=== PATIENT | female | born 1945 | race Caucasian/White ===

== ENCOUNTER 2023-04-19 10:45 | Emergency (ER) | payer MEDICARE, SELFPAY ==
[2023-04-19 10:53] VITALS: BP 156/75; PULSE 88; RESP 18; TEMP 37; O2SAT 99; BMI 30.1
[2023-04-19 11:43] LABS: Basophils Percent Auto 0.3 % (0.2-2.0); Eosinophils Absolute Auto 0.1 10^3/uL (0.0-0.7); Eosinophils Percent Auto 0.5 % (0.9-7.0); Hematocrit 31.1 % (36.0-48.0); Hemoglobin 10.7 g/dL (12.0-16.0); Immature Granulocytes Abs Auto 0.05 10^3/uL (0.00-0.03); Immature Granulocytes Pct Auto 0.5 % (0.0-0.5); Lymphocytes Absolute Auto 0.7 10^3/uL (1.2-3.8); Lymphocytes Percent Auto 6.7 % (20.5-60.0); Mean Corpuscular HGB Conc 34.4 g/dL (29.9-35.2); Mean Corpuscular Hemoglobin 31.2 pg (26.7-34.0); Mean Corpuscular Volume 90.7 fL (81.0-99.0); Monocytes Absolute Auto 0.9 10^3/uL (0.3-0.8); Monocytes Percent Auto 8.2 % (1.7-12.0); Neutrophils Absolute Auto 9.3 10^3/uL (1.4-6.5); Neutrophils Percent Auto 83.8 % (43.0-75.0); Platelet Count 205 10^3/uL (150-450); Red Blood Count 3.43 10^6/uL (4.20-5.40); Red Cell Distribution Width 13.4 % (11.0-15.0)
[2023-04-19] MEDS: 0.9 % SODIUM CHLORIDE 1,000 ML 100 ML IV (11:45)
[2023-04-19] MEDS: ONDANSETRON PF 4 MG/2 ML VIAL IV (11:46)
--- NOTE | 2023-04-19 11:53 | US_ITS ---
The [address] [address] Patient Name: WILL THOMAS MRN: [id number] date: 1945 Sex: F Assigned Patient Location: ER Current Patient Location: ER Accession/Order Number: [id number] Exam Date: 04/19/2023 12:30 Report Date: 04/19/2023 13:07 At the request of: COURTNEY LINARES Procedure: US right upper quadrant EXAM: US right upper quadrant HISTORY: RUQ gallbladder COMPARISON: None. TECHNIQUE: Limited ultrasound of the liver, utilizing grayscale and color Doppler imaging. FINDINGS: Right pleural space: Clear Liver: Mild increased echogenicity of the liver with coarse echotexture, representing hepatic steatosis. Normal size and contour. There is a 3.5 cm anechoic structure in the right hepatic lobe without vascular flow. There are echogenic areas in left hepatic lobe, 0.9 and 2.1 cm, may represent hemangioma. Nonurgent Multiphasic CT of the abdomen (liver protocol) is recommended for better evaluation. Gallbladder: No gallbladder wall thickening or cholelithiasis.Negative sonographic Romano's sign. Intrahepatic ducts: Normal caliber. Extra hepatic duct measures up to 0.7 cm Peritoneal space: No ascites. Pancreas: Unremarkable Right kidney: Normal cortical echogenicity. No hydronephrosis. The right kidney measures 11 cm in length. US/US right upper quadrant IMPRESSION: Hepatic steatosis. 3.5 cm right hepatic cyst. 0.9 and 2.1 cm echogenic lesions in left hepatic lobe, may represent hemangioma. Nonurgent Multiphasic CT of the abdomen (liver protocol) is recommended for better evaluation. No cholelithiasis. Electronically authenticated by: EARLINE LYNN Date: 04/19/2023 13:07
--- NOTE | 2023-04-19 11:54 | ED.GENADUL1 ---
HPI - General Adult General Chief complaint: Abdominal Pain Stated complaint: ABDOMINAL PAIN Time Seen by Provider: 04/19/23 11:35 Source: patient Mode of arrival: walk-in History of Present Illness HPI narrative: Patient is a 77-year-old female who is presenting to the Emergency Room today with chief complaint of right upper quadrant pain this started yesterday at 2 PM. Patient stated that she was eating a [employer] candy bar at approximately 2 PM, and from 2 to 4 PM she was having severe right upper quadrant pain that radiated to the right lateral chest wall. Patient stated the pain was ongoing throughout the evening last night, she did not sleep much secondary to pain. Patient then was having some pain this morning but then it resolved. Patient came into the Emergency Room today because she cannot follow up with a PCP. Patient did see Dr. Resendez in the past, he retired. Dr. Jones cannot see patient in until May. They're to switch PCP to Dr. Dumont. Patient has nausea no vomiting. She has no pain currently. No chest pain or shortness of breath. Currently no dull pain, positive nausea, no vomiting, no diarrhea. No constipation concerns. . All systems are negative except as noted/marked. All systems reviewed and otherwise negative. . Nurses note and vital signs reviewed and patient is not hypoxic. General: The patient appears well and in no apparent distress. Patient is resting comfortably on cart. Patient is not toxic, lethargic, or listless Skin: Warm, dry, no pallor noted. There is no rash noted. No petechiae, purpura. Head: Normocephalic, atraumatic Eye: Normal conjunctiva, no drainage, EOMI. PERRL Ears, Nose, Mouth, and Throat: oral mucosa is moist. Nares patent. Mouth without vesicles. Cardiovascular: Regular Rate and Rhythm, no murmur, gallop, rub Respiratory: Patient is in no distress, no accessory muscle use, lungs are clear to auscultation, no wheezing, rales or rhonchi Back: non-tender, no CVA tenderness bilaterally to percussion. No CT LS midline pain GI: soft, Patient has no tenderness to palpation right upper quadrant, negative Romano sign, no midepigastric tenderness palpation, no peritoneal signs, soft, benign abdomen, no tenderness to palpation, no masses appreciated. No rebound, guarding, or rigidity noted. No flank pain bilateral, No distention Musculoskeletal: Patient has full range of motion of all of the extremities, no motor, sensory, or focal neurological deficits Neurological: A&O x3, normal speech Psychiatric: Cooperative Related Data Home Medications Medication Instructions Recorded Confirmed anastrozole 1 mg tablet 1 mg PO DAILY 04/19/23 04/19/23 apixaban 5 mg tablet (Eliquis) 5 mg PO BID 04/19/23 04/19/23 atorvastatin 40 mg tablet 40 mg PO DAILY 04/19/23 04/19/23 carvedilol 6.25 mg tablet 6.25 mg PO BID 04/19/23 04/19/23 chlorthalidone 25 mg tablet 25 mg PO DAILY 04/19/23 04/19/23 latanoprost 0.005 % eye drops 1 drp ophthalmic (eye) DAILY 04/19/23 04/19/23 valsartan 320 mg tablet 320 mg PO DAILY 04/19/23 04/19/23 Allergies Allergy/AdvReac Type Severity Reaction Status Date / Time ciprofloxacin [From Cipro] Allergy Severe Verified 04/19/23 10:56 sulfamethoxazole Allergy Severe Verified 04/19/23 10:52 [From Bactrim] trimethoprim [From Bactrim] Allergy Severe Verified 04/19/23 10:52 [facility] Medical History (Updated 04/19/23 @ 14:14 by Lyle Fuchs MD) Surgical History (Updated 04/19/23 @ 11:01 by Melania Parker) Exam Constitutional Vital Signs, click to edit/add: Last Vital Signs Temp 98.6 F 04/19/23 10:53 Pulse 66 04/19/23 13:30 Resp 11 L 04/19/23 13:30 BP 156/75 H 04/19/23 10:53 Pulse Ox 99 04/19/23 10:53 O2 Del Method Room Air 04/19/23 10:53 Course Vital Signs Vital signs: Vital Signs Temperature 98.6 F 04/19/23 10:53 Pulse Rate 88 04/19/23 10:53 Respiratory Rate 18 04/19/23 10:53 Blood Pressure 156/75 H 04/19/23 10:53 Pulse Oximetry 99 04/19/23 10:53 Oxygen Delivery Method Room Air 04/19/23 10:53 Temperature 98.6 F 04/19/23 10:53 Pulse Rate 66 04/19/23 13:30 Respiratory Rate 11 L 04/19/23 13:30 Blood Pressure 156/75 H 04/19/23 10:53 Pulse Oximetry 99 04/19/23 10:53 Oxygen Delivery Method Room Air 04/19/23 10:53 Medical Decision Making MDM Narrative Medical decision making narrative: Patient's laboratory shows no significant findings. Lipase notation no significant changes. Patient's ultrasound the right upper quadrant showed no acute findings. A copy of the ultrasound report was given to the patient and with patient, and daughter bedside, all the impressions of the ultrasound report of the gallbladder were discussed in detail. Patient will establish and follow up with new PCP. Patient was given prescription for Zofran and Bentyl to use if needed. No acute findings today. Patient is asymptomatic entire time in the Emergency Room. Difficult to assess whether this could've been gas underneath the right upper quadrant diaphragm could've caused similar pain, patient feels better, will follow-up establish new PCP. Lab Data Lab results reviewed: Yes I reviewed the patient's lab results Labs: Lab Results 04/19/23 Range/Units 11:30 WBC 11.0 (4.0-11.0) 10^3/uL RBC 3.43 L (4.20-5.40) 10^6/uL Hgb 10.7 L (12.0-16.0) g/dL Hct 31.1 L (36.0-48.0) % MCV 90.7 (81.0-99.0) fL MCH 31.2 (26.7-34.0) pg MCHC 34.4 (29.9-35.2) g/dL RDW 13.4 (11.0-15.0) % Plt Count 205 (150-450) 10^3/uL MPV 10.0 (9.5-13.5) fL Neut % (Auto) 83.8 H (43.0-75.0) % Lymph % (Auto) 6.7 L (20.5-60.0) % [place] % (Auto) 8.2 (1.7-12.0) % Eos % (Auto) 0.5 L (0.9-7.0) % Baso % (Auto) 0.3 (0.2-2.0) % Neut # (Auto) 9.3 H (1.4-6.5) 10^3/uL Lymph # (Auto) 0.7 L (1.2-3.8) 10^3/uL [place] # (Auto) 0.9 H (0.3-0.8) 10^3/uL Eos # (Auto) 0.1 (0.0-0.7) 10^3/uL Baso # (Auto) 0.0 (0.0-0.1) 10^3/uL Abs Immat Gran (auto) 0.05 H (0.00-0.03) 10^3/uL Imm/Tot Granulo (auto) 0.5 (0.0-0.5) % Sodium 139 (136-145) mmol/L Potassium 3.6 (3.5-5.1) mmol/L Chloride 101 (98-107) mmol/L Carbon Dioxide 28.5 (21.0-32.0) mmol/L Anion Gap 13.1 BUN 21.0 H (7.0-18.0) mg/dL Creatinine 1.19 H (0.55-1.02) mg/dL Est GFR ( Amer) 53 L (>=60) Est GFR (Non-Af Amer) 44 L (>=60) BUN/Creatinine Ratio 17.6 Glucose 138 H (74-106) mg/dL Calcium 9.1 (8.5-10.1) mg/dL Total Bilirubin 0.6 (0.2-1.0) mg/dL Direct Bilirubin 0.1 (0.0-0.2) mg/dL AST 16 (15-37) U/L ALT 28 (14-59) U/L Alkaline Phosphatase 54 (46-116) U/L Troponin I High Sens 9.9 (4.0-51.3) pg/mL Total Protein 7.1 (6.4-8.2) g/dL Albumin 3.5 (3.4-5.0) g/dL Globulin 3.6 g/dL Albumin/Globulin Ratio 1.0 Lipase 243.0 (73.0-393.0) U/L ECG Data Attestation: I personally reviewed and interpreted this ECG as follows: Interpretation: EKG interpretation. Normal sinus rhythm 82 beats a minute. Normal axis deviation. No acute ST elevation, no acute ectopy. QTC of 409 Discharge Plan Discharge Chief Complaint: Abdominal Pain Clinical Impression: Biliary colic, Abdominal pain, acute, right upper quadrant Patient Disposition: Home, Self-Care Condition: Good Prescriptions / Home Meds: No Action anastrozole 1 mg tablet 1 mg PO DAILY Eliquis 5 mg tablet 5 mg PO BID atorvastatin 40 mg tablet 40 mg PO DAILY carvedilol 6.25 mg tablet 6.25 mg PO BID chlorthalidone 25 mg tablet 25 mg PO DAILY latanoprost 0.005 % drops 1 drp OPHTHALMIC (EYE) DAILY valsartan 320 mg tablet 320 mg PO DAILY Instructions: Biliary Colic (ED), Acute Abdominal Pain (ED) Additional Instructions: Increase fluids. If pain continues, follow up with PCP for additional testing. You were given a copy of her ultrasound report Stand Alone Forms: Portal Instructions Referrals: Physician,Non-Staff, MD [Primary Care Provider] - 1 week Discharge Date/Time: 04/19/23 14:35
[2023-04-19 11:56] LABS: Alanine Aminotransferase 28 U/L (14-59); Albumin Level 3.5 g/dL (3.4-5.0); Alkaline Phosphatase 54 U/L (46-116); Anion Gap 13.1; Aspartate Amino Transferase 16 U/L (15-37); BUN Creatinine Ratio 17.6; Bilirubin Direct 0.1 mg/dL (0.0-0.2); Bilirubin Total 0.6 mg/dL (0.2-1.0); Calcium 9.1 mg/dL (8.5-10.1); Carbon Dioxide 28.5 mmol/L (21.0-32.0); Chloride 101 mmol/L (98-107); Estimated GFR (African America 53 (>=60); Estimated GFR (Non-African Ame 44 (>=60); Globulin 3.6 g/dL; Glucose 138 mg/dL (74-106); Potassium 3.6 mmol/L (3.5-5.1); Sodium 139 mmol/L (136-145); Total Protein 7.1 g/dL (6.4-8.2); Troponin I High Sensitivity 9.9 pg/mL (4.0-51.3)
[2023-04-19 13:00] VITALS: PULSE 66; RESP 20
[2023-04-19 13:10] VITALS: PULSE 68; RESP 24
[2023-04-19 13:20] VITALS: PULSE 66; RESP 13
[2023-04-19 13:30] VITALS: PULSE 66; RESP 11
--- NOTE | 2023-04-19 19:53 | ECG_ITS ---
[facility] Test Date: 2023-04-19 Pat Name: WILL THOMAS Department: Room: - Gender: Female Emb[employer]ded [employer] Developer: : 1945 Requested By: [id number] Order Number: [id number] Reading MD: ZACK NARAYANAN Measurements Intervals [place] Rate: 82 P: 90 AK: 154 QRS: 96 QRSD: 92 T: 83 QT: 370 QTc: 409 Interpretive Statements 1100 Sinus rhythm 1102 Sinus arrhythmia 2420 RSR (QR) in lead V1/V2, consistent with right ventricular conduction delay 7102 Moderate right axis deviation 9130 borderline ECG No previous ECG available for comparison Electronically Signed On 04-20-2023 7:07:27 EDT by ZACK NARAYANAN
== END 2023-04-19 14:35 | disposition home or self-care (01) ==
PROVIDERS: Emergency Provider Emergency Medicine
DX: R10.11 Right upper quadrant pain (principal); K80.50 Calculus of bile duct without cholangitis or cholecystitis without obstruction; Z79.899 Other long term (current) drug therapy
CPT/HCPCS: 36415; 76705; 80053; 80076; 83690; 84484; 85025; 93005; 96374; 99285

== ENCOUNTER 2023-04-21 09:16 | Outpatient (OUT) | payer MEDICARE, SELFPAY ==
[2023-04-21 10:14] LABS: Alanine Aminotransferase 25 U/L (14-59); Albumin Globulin Ratio 0.8; Albumin Level 3.2 g/dL (3.4-5.0); Alkaline Phosphatase 50 U/L (46-116); Anion Gap 10.3; Aspartate Amino Transferase 15 U/L (15-37); BUN Creatinine Ratio 20.8; Bilirubin Total 0.5 mg/dL (0.2-1.0); Calcium 8.5 mg/dL (8.5-10.1); Carbon Dioxide 29.1 mmol/L (21.0-32.0); Chloride 103 mmol/L (98-107); Chol HDL Ratio 2.5; Cholesterol 156 mg/dL (<=200); Estimated GFR (African America 43 (>=60); Estimated GFR (Non-African Ame 35 (>=60); Globulin 3.9 g/dL; Glucose 110 mg/dL (74-106); HDL Cholesterol 63 mg/dL (40-60); Potassium 3.4 mmol/L (3.5-5.1); Sodium 139 mmol/L (136-145); Total Protein 7.1 g/dL (6.4-8.2); Triglycerides 176 mg/dL (<=150); VLDL CHOLESTEROL 35.2 mg/dL
== END 2023-04-21 09:17 | disposition home or self-care (01) ==
LOC: LAB 09:16
DX: E78.5 Hyperlipidemia, unspecified (principal); I48.91 Unspecified atrial fibrillation; I10 Essential (primary) hypertension; E78.1 Pure hyperglyceridemia
CPT/HCPCS: 36415; 80053; 80061

== ENCOUNTER 2023-05-09 10:40 | Outpatient (OUT) | payer MEDICARE, SELFPAY ==
[2023-05-09 12:01] LABS: Anion Gap 12.1; BUN Creatinine Ratio 28.5; Calcium 8.7 mg/dL (8.5-10.1); Carbon Dioxide 28.2 mmol/L (21.0-32.0); Chloride 105 mmol/L (98-107); Estimated GFR (African America 40 (>=60); Estimated GFR (Non-African Ame 33 (>=60); Glucose 111 mg/dL (74-106); Potassium 4.3 mmol/L (3.5-5.1); Sodium 141 mmol/L (136-145)
== END 2023-05-09 10:41 | disposition home or self-care (01) ==
LOC: LAB 10:41
DX: E78.5 Hyperlipidemia, unspecified (principal); I48.91 Unspecified atrial fibrillation; E78.1 Pure hyperglyceridemia; I12.9 Hypertensive chronic kidney disease with stage 1 through stage 4 chronic kidney disease, or unspecified chronic kidney disease; Z90.13 Acquired absence of bilateral breasts and nipples; D64.9 Anemia, unspecified; I34.0 Nonrheumatic mitral (valve) insufficiency; I27.20 Pulmonary hypertension, unspecified
CPT/HCPCS: 36415; 80048

== ENCOUNTER 2023-05-18 11:24 | Outpatient (OUT) | payer MEDICARE, SELFPAY ==
[2023-05-18 12:39] LABS: Basophils Percent Auto 0.6 % (0.2-2.0); Eosinophils Absolute Auto 0.2 10^3/uL (0.0-0.7); Eosinophils Percent Auto 3.4 % (0.9-7.0); Hematocrit 32.1 % (36.0-48.0); Hemoglobin 10.6 g/dL (12.0-16.0); Immature Granulocytes Abs Auto 0.03 10^3/uL (0.00-0.03); Immature Granulocytes Pct Auto 0.4 % (0.0-0.5); Lymphocytes Absolute Auto 1.3 10^3/uL (1.2-3.8); Lymphocytes Percent Auto 18.1 % (20.5-60.0); Mean Corpuscular Hemoglobin 31.4 pg (26.7-34.0); Mean Platelet Volume 10.7 fL (9.5-13.5); Monocytes Absolute Auto 0.4 10^3/uL (0.3-0.8); Monocytes Percent Auto 5.3 % (1.7-12.0); Neutrophils Absolute Auto 5.1 10^3/uL (1.4-6.5); Neutrophils Percent Auto 72.2 % (43.0-75.0); Platelet Count 226 10^3/uL (150-450); Red Blood Count 3.38 10^6/uL (4.20-5.40); Red Cell Distribution Width 13.2 % (11.0-15.0)
[2023-05-18 12:54] LABS: Anion Gap 13.3; BUN Creatinine Ratio 24.5; Calcium 8.9 mg/dL (8.5-10.1); Chloride 107 mmol/L (98-107); Estimated GFR (African America 45 (>=60); Estimated GFR (Non-African Ame 37 (>=60); Glucose 126 mg/dL (74-106); Potassium 4.3 mmol/L (3.5-5.1); Sodium 140 mmol/L (136-145)
== END 2023-05-18 11:25 | disposition home or self-care (01) ==
LOC: LAB 11:25
PROVIDERS: PCP Family Medicine
DX: I12.9 Hypertensive chronic kidney disease with stage 1 through stage 4 chronic kidney disease, or unspecified chronic kidney disease (principal); D64.9 Anemia, unspecified
CPT/HCPCS: 36415; 80048; 85025

== ENCOUNTER 2024-03-06 08:43 | Outpatient (OUT) | payer MEDICARE, SELFPAY ==
[2024-03-06 09:22] LABS: Anion Gap 13.3; BUN Creatinine Ratio 29.2; Calcium 8.8 mg/dL (8.5-10.1); Carbon Dioxide 26.1 mmol/L (21.0-32.0); Chloride 107 mmol/L (98-107); Estimated GFR (African America 33 (>=60); Estimated GFR (Non-African Ame 28 (>=60); Glucose 118 mg/dL (74-106); Potassium 4.4 mmol/L (3.5-5.1); Sodium 142 mmol/L (136-145)
== END 2024-03-06 08:44 | disposition home or self-care (01) ==
LOC: LAB 08:43
PROVIDERS: PCP Family Medicine; Visit Provider Internal Medicine Cardiovascular Disease
DX: I12.9 Hypertensive chronic kidney disease with stage 1 through stage 4 chronic kidney disease, or unspecified chronic kidney disease (principal); N18.31 Chronic kidney disease, stage 3a; E78.1 Pure hyperglyceridemia
CPT/HCPCS: 36415; 80048